=== PATIENT | female | born 1930 | race Caucasian/White ===

== ENCOUNTER 2016-08-02 14:01 | Outpatient (CLI) ==
--- NOTE | 2016-08-02 15:23 | DI ---
Examination: Two radiographic images of the left heel (calcaneus). Comparison: Right calcaneal radiographs performed on the same day. Reason for study: Pain. FINDINGS: No acute fracture. The calcaneus appears intact. Vascular calcifications are seen withi n the soft tissues. Impression: No acute fracture is seen in the left calcaneus.
--- NOTE | 2016-08-02 15:26 | DI ---
EXAM: Right heel, two-view HISTORY: Heel pain COMPARISON: None FINDINGS: No fracture or dislocation. Calcaneus appears normal. Atherosclerotic vascular calcific ation. IMPERSSION: No fracture or dislocation.
--- NOTE | 2016-08-02 15:26 | DI ---
EXAM:Three-view right ankle COMPARISON: None HISTORY: Trauma and pain FINDINGS: There is no acute fracture or dislocation. Alignment is anatomic. Joint spaces are well preserved. There is some mild degenerative change and some osteopenia. There is calcific atheroscle rosis. No unexpected radio-opaque foreign bodies. IMPRESSION: No acute osseous abnormality.
--- NOTE | 2016-08-02 15:28 | DI ---
EXAM: Left ankle. Three-view HISTORY: Ankle pain COMPARISON: None FINDINGS: No fracture or dislocation. Well marginated ossification about the dorsal midfoot is chr onic in etiology and may be due to ossification center or old trauma. Ankle mortise is symmetric. Th ere is atherosclerotic vascular calcification. IMPERSSION: No fracture or dislocation.
== END 2016-08-02 14:02 | disposition home or self-care (01) ==
LOC: RAD 14:01
PROVIDERS: ATTEND Family Medicine
DX: R26.9 Unspecified abnormalities of gait and mobility (principal); M25.572 Pain in left ankle and joints of left foot; M25.571 Pain in right ankle and joints of right foot; M79.672 Pain in left foot; M79.671 Pain in right foot

== ENCOUNTER 2016-08-23 06:49 | Day surgery (SDC) ==
[2016-08-23] MEDS ORDERED: LIDOCAINE 1% 20 ML MDV ONE (07:30)
[2016-08-23] MEDS ORDERED: LIDOCAINE 1% 20 ML MDV ID ONE (07:30)
[2016-08-23] MEDS ORDERED: DIPRIVAN 20 ML VIAL IVP ONE (08:45)
[2016-08-23] MEDS ORDERED: VERSED ONE (08:45)
[2016-08-23 11:05] VITALS: BP 140/58; TEMP 97.5
--- NOTE | 2016-08-23 13:31 | OP ---
PROCEDURE: COLONOSCOPY TO THE CECUM ENDOSCOPIST: Sienna POOL M.D. INDICATION: History of Polyps INSTRUMENT: PC-190. MEDICATION: PER ANESTHESIA. PROCEDURE: The patient was positioned for colonoscopy. The digital rectal exam was negative. The colonoscope was inserted through the anus and advanced to the cecum. The cecum was identified using the ileocecal valve and the appendiceal orifice as landmarks. The scope was slowly withdrawn through an adequately prepped colon. Careful inspection made of each colonic segment as the scope was withdrawn in a circumferential fashion. Care was taken to inspect the proximal side of the ileocecal valve, haustral fold, flexures and rectal valves. Scattered diverticuli were noted in the left colon. Hemorrhoids were seen in retroflex examine. No other abnormalities were noted. Withdraw time 9 minutes and 45 seconds. PLAN: 1. I would suggest further evaluation on an as needed basis at her age. CC: Edd SPEARS
== END 2016-08-23 10:45 | disposition home or self-care (01) ==
LOC: SURG 06:49
PROVIDERS: ATTEND Internal Medicine Gastroenterology
DX: Z09 Encounter for follow-up examination after completed treatment for conditions other than malignant neoplasm (principal); Z86.010 Personal history of colon polyps; K57.30 Diverticulosis of large intestine without perforation or abscess without bleeding; K64.9 Unspecified hemorrhoids

== ENCOUNTER 2017-04-22 13:49 | Outpatient (CLI) | END 2017-04-22 13:50 | disposition home or self-care (01) | LOC: LAB 13:49 | PROVIDERS: ATTEND Internal Medicine Endocrinology, Diabetes & Metabolism | DX: E55.9 Vitamin D deficiency, unspecified (principal) | CPT/HCPCS: 36415; 83970 ==

== ENCOUNTER 2017-05-03 12:08 | Outpatient (CLI) | END 2017-05-03 12:09 | disposition home or self-care (01) | LOC: LAB 12:08 | PROVIDERS: ATTEND Internal Medicine Endocrinology, Diabetes & Metabolism | DX: E55.9 Vitamin D deficiency, unspecified (principal) | CPT/HCPCS: 36415; 82306 ==

== ENCOUNTER 2017-07-25 11:37 | Outpatient (CLI) | END 2017-07-25 11:38 | disposition home or self-care (01) | LOC: LAB 11:37 | PROVIDERS: ATTEND Internal Medicine Endocrinology, Diabetes & Metabolism | DX: E55.9 Vitamin D deficiency, unspecified (principal) | CPT/HCPCS: 36415; 82306 ==

== ENCOUNTER 2017-07-27 08:52 | Outpatient (CLI) ==
--- NOTE | 2017-07-27 11:05 | MODBARIUM ---
MODIFIED BARIUM SWALLOW Patient Name: CHERRIE GRAHAM Date of : 1930 Patient Status: Clinical Attending Provider: MATEO CAT Date: 07/27/17 10:23 Initialization Date: 07/27/17 10:23 Subjective Number of treatment sessions: 1 Date of Evaluation: 07/27/17 Treatment Diagnosis: Dysphagia Current Level of Function: This 87 year old female has a hx of multiple back surgeries. She currently has screws in C3-7. At time of the evaluation, the patient reported she felt one of her screws were loose. The patient currently lives independently and prepares her own food, restricting dry meats. Laryngeal palpation was completed and adequate elevation was noted. The RN TELEHEALTH also noted patient had no difficulty initiating a dry swallow. The RN TELEHEALTH observed the patient with adequate swallowing posture, upper and lower partials, and no coughing prior to PO intake. Current Diet: regular diet texture with thin liquids. Current Subjective/complaints:: When asked about swallowing difficulty with food , liquid, and pills, the patient stated all were difficult. The patient was a poor historian providing scattered information and limited details to describe her swallow difficulty. However, the patient reported her swallowing trouble was not all the time, and primarily with pills and meat textures. She went on to state, she gets "strangled" occasionally with liquids. When asked about her dention, the patient reported complaints with bottom partial. At this time, she has to swallow hard and use liquids to clear food. She reported food feeling stuck at the level of the vallecuale. Medical History Comments:: Per patient report no medical hx was provided except her back surgery. She had three back surgeries and has screws in C3-7-which was observed under fluoroscopy. Patient's Goals: To swallow safely. Food Presented Thin Liquid: straw (no overt s/s of aspiration) Ground Meat: 1/2 teaspoon (Whole meat, Minimal BOT and valleculae residue. 2x swallow) Cubed Soft Fruit: 1/2 teaspoon (Multiple swallows) Vanilla Wafer: 1/4 cookie (multiple swallows, moderate valleculae pooling and mild valleculae and BOT residue) Barium Tablet: Tablet (Attempted 3x without successful swallow. RN TELEHEALTH removed pill from oral cavity.) Oral Phase - Oral Phase Labial Closure: WFL Bolus Formation: WFL Mastication: Mild Impairment (Prolongation) Lingual Movement: WFL A/P Propulsion: Moderate Impairment (Difficulty with transfer of pill) Premature Vallecular Pooling: Moderate (With cookie texture) Oral Residue: Mild (With fruit, cookie, and meat texture.) Comments:: Oral phase with adequate labial seal and minimal prolongation with mastication with all textures. Functional bolus formation with minimal difficulty with A-P transfer to BOT. Premature spillage to vallecuale with all diet textures. Premature spillage over tip of valleculae with mild-moderate delay in swallow initiation with thin liquids. Pharyngeal Phase Pharyngeal Response: WFL Base of Tongue: Mild Impairment (Weakness with bolus control) Epiglottic Movement: WFL Laryngeal Excursion: WFL Vallecular Residue: Mild (With all diet textures) Pyriform Residue: Scant Comments:: Pharyngeal phase with mild-moderate delay in swallow initiation due to premature spillage to valleculae and over tip of valleculae with thin liquids. Weak BOT observed due to poor bolus control prior to intiation of swallow with pooling in valleculae. Three swallows required to clear diet texture residue from BOT and valleculae. Liquid wash on third swallow cleared all diet texture. Summary and Recommendations - Recommendations PO Diet: Regular, Moist, NO Dry Breads/Crackers Comments:: Pt to have modified regular diet texture. Gravy and condiments on all meats. No dry meat textures, i.e chicken breasts or pork chops. Thin liquids with all meals. All pills to be crushed and placed in pudding/ applesauce. Pt to use effortful swallow and liquid wash with every swallow to assist with clearing residuals. Pt to take 1/2 teaspoon size bites for better bolus control and to reduce premature spillage of diet texture. Pt was not observed with any penetration or aspiration. Pt had functional airway protection. Further Therapy Indicated?: No Functional Reporting G Codes: Swallowing Current CI Goal CI Discharge CI Severity Impairment Rationale: Dentition and minimal restrictions with regular diet texture. Plan Duration of Treatment: One Time Treatment Frequency of Treatment: One time treatment Anticipated Discharge Destination: Home Comments: The RN TELEHEALTH educated pt on safe swallow precautions and compensatory swallow strategies. Pt verbalized agreement with recommendations. - Treatment Code (1) Oropharyngeal dysphagia Code(s): R13.12 - DYSPHAGIA, OROPHARYNGEAL PHASE MTDD
--- NOTE | 2017-07-27 11:31 | DI ---
EXAM: Modified as well HISTORY: Choking sensation COMPARISON: None FINDINGS: Modified video swallow was performed in conjunction with speech therapist using various co nsistencies of barium. There was no aspiration.. IMPRESSION: No aspiration. Please see seperate report from the speech therapist for further details.
== END 2017-07-27 08:53 | disposition home or self-care (01) ==
LOC: RAD 08:52
PROVIDERS: ATTEND Family Medicine
DX: R13.10 Dysphagia, unspecified (principal); R09.89 Other specified symptoms and signs involving the circulatory and respiratory systems

== ENCOUNTER 2017-08-08 07:54 | Day surgery (SDC) ==
[2017-08-08] MEDS ORDERED: LIDOCAINE 1% 20 ML MDV ID STA (08:32)
[2017-08-08] MEDS ORDERED: LIDOCAINE HCL 2% LUER-JET ONE (10:00)
[2017-08-08] MEDS ORDERED: DIPRIVAN 20 ML VIAL IVP ONE (10:00)
[2017-08-08] MEDS ORDERED: VERSED ONE (10:00)
--- NOTE | 2017-08-09 10:31 | OP ---
PROCEDURE: EGD (ESOPHAGOGASTRODUODENOSCOPY). ENDOSCOPIST: Sienna POOL M.D. INDICATION: MID EPIGASTRIC PAIN. INSTRUMENT: GIFH-190. MEDICATION: PER ANESTHESIA. PROCEDURE: The patient was positioned for endoscopy. The oropharynx was sprayed with Cetacaine spray and the endoscope was advanced through the bite block into the esophagus and from there advanced to the duodenum. The patient has undergone prior BII anastomosis. She has a small gastric pouch. Mild reflux gastritis noted. The retroflex exam is normal. The esophagus is normal. PLAN: 1. Continue H2 santa therapy. CC: DR. STEPHANIA SPEARS
[2017-08-09 14:48] VITALS: BP 112/56; TEMP 98.5
== END 2017-08-08 11:00 | disposition home or self-care (01) ==
LOC: SURG 07:54
PROVIDERS: ATTEND Internal Medicine Gastroenterology
DX: R10.13 Epigastric pain (principal); K29.60 Other gastritis without bleeding; Z98.0 Intestinal bypass and anastomosis status

== ENCOUNTER 2017-08-16 12:28 | Outpatient (CLI) ==
--- NOTE | 2017-08-16 14:34 | US ---
EXAM: Ultrasound bilateral carotid duplex. HISTORY: Transient paralysis. Extremity weakness. COMPARISON: None available. TECHNIQUE: Multiple new scale and color Doppler images were obtained. FINDINGS: Please note that estimates of internal carotid artery stenoses are based upon NASCET crite aniket. Right carotid: Calcified plaquing noted without visualized 50% or greater stenosis. Peak systolic v elocity measurement in the right internal carotid artery is 0.8 meters per second. Right internal to common carotid artery peak systolic velocity ratio measures 1.5. End diastolic velocity measurement in the right internal carotid artery is 0.2 meters per second. Flow in the right vertebral artery i s antegrade. Left carotid: Calcified plaquing without visualized 50% or greater stenosis. Peak systolic velocity measurement in the left internal carotid artery is 0.6 meters per second. Left internal to common c arotid artery peak systolic velocity ratio measures 1.0. End diastolic velocity measurement in the l eft internal carotid artery measures 0.2 meters per second. Flow in the left vertebral artery is ant egrade. IMPRESSION: 1. 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 2. Antegrade flow in both vertebral arteries.
== END 2017-08-16 12:29 | disposition home or self-care (01) ==
LOC: RAD 12:28
PROVIDERS: ATTEND Family Medicine
DX: R29.5 Transient paralysis (principal); R29.898 Other symptoms and signs involving the musculoskeletal system; G45.9 Transient cerebral ischemic attack, unspecified; I65.29 Occlusion and stenosis of unspecified carotid artery

== ENCOUNTER 2018-07-28 14:43 | Outpatient (CLI) ==
--- NOTE | 2018-07-28 15:11 | DI ---
EXAM: Two views of the chest. History: Cough. Comparison: Chest radiograph 05/30/2014. Findings: Heart size is normal. Atherosclerotic vascular calcifications. Postsurgical changes of t he cervical spine. Calcified granulomas are again seen within the thorax. No consolidation. No ple ural fluid and no pneumothorax. There is central bronchial wall thickening. Degenerative changes of the spine. Impression: Bronchial wall thickening but no consolidated pneumonia. No change compared to the prio r study.
== END 2018-07-28 14:44 | disposition home or self-care (01) ==
LOC: RAD 14:43
PROVIDERS: ATTEND Family Medicine
DX: R05 Cough (principal); R07.89 Other chest pain